=== PATIENT | female | born 1975 | race Caucasian/White ===

== ENCOUNTER 2018-02-19 03:00 | Emergency (ER) | payer BC ==
[~2018-02-19] VITALS: Ht 175.3 cm; Wt 61.2 kg
--- NOTE | 2018-02-19 03:48 | NUR ---
Patient discharged to home in stable conditon. Written and verbal after care instructions given. Patient verbalizes understanding of instructions. Patient able to ambulate unassisted with a steady gait. Patient left with all personal belongings.
[2018-02-19 03:57] VITALS: BP 116/86
== END 2018-02-19 03:48 | disposition home or self-care (01) ==
LOC: ER 03:05
DX: J18.9 Pneumonia, unspecified organism (principal); R07.89 Other chest pain
CPT/HCPCS: 71045; 93005; 99284; A4663